=== PATIENT | male | born 1960 | race Caucasian/White ===

== ENCOUNTER 2016-11-14 13:03 | Emergency (ER) | payer MEDICARE ==
[~2016-11-14 13:03] MED LIST: PLAVIX75 MG PO
[2016-11-14 14:57] LABS: HEMOGLOBIN 11.9 gm/dl (14.0-17.5); RED BLOOD COUNT 4.31 M/UL (4.20-5.50); WHITE BLOOD COUNT 10.2 K/UL (4.5-11.0)
== END 2016-11-14 16:20 | disposition home or self-care (01) ==
LOC: ER1 13:03
PROVIDERS: Physician Assistant
DX: T24.211A Burn of second degree of right thigh, initial encounter (principal); L03.115 Cellulitis of right lower limb; I10 Essential (primary) hypertension; R60.0 Localized edema; M25.471 Effusion, right ankle; M79.89 Other specified soft tissue disorders; Z96.642 Presence of left artificial hip joint; Z87.891 Personal history of nicotine dependence; Z79.899 Other long term (current) drug therapy; V29.9XXA Motorcycle rider (driver) (passenger) injured in unspecified traffic accident, initial encounter; Y93.89 Activity, other specified
CPT/HCPCS: 16020; 36415; 85025; 87040; 87070; 87077; 87186; 87205; 93971; 96374; 99284; J0696; J7050

== ENCOUNTER 2020-09-08 16:03 | Inpatient (IN) | payer OTHER, MEDICARE ==
[~2020-09-08] VITALS: Ht 185.4 cm; Wt 137.9 kg
[~2020-09-08 16:03] MED LIST changes: +ABILIFY 5 MG TAB5 MG PO; +ABILIFY15 MG PO; +ABILIFY5 MG PO; +CELEXA40 MG PO; +ELIQUIS 2.5 MG2.5 MG PO; +ELIQUIS 5 MG TAB5 MG PO; +FOLIC ACID 1 MG1 MG PO; +GABAPENTIN400 MG PO; +LEVAQUIN750 MG PO; +LOPRESSOR 25 MG25 MG PO; +LOPRESSOR100 MG PO; +METOPROLOL SUC100 MG PO; +MULTIVITAMINS1 EAC2 PO; +NEURONTIN 400400 MG PO; +NORCO 10-325 T1 EACH PO; +NORCO 5-325 TA1 EACH PO; +ONCE DAILY1 EACH PO; +PANTOPRAZOLE SO40 MG PO; +POTASSIUM CHLO10 ME1 PO; +PROBIOTIC1 EAC2 PO; +PROTONIX40 M1 PO; +THERAGRAN M TAB1 EA PO; +TOPROL XL100 MG PO; +TRAZODONE HCL150 MG PO; +VENLAFAXINE HCL75 MG PO; +VIAGRA100 MG PO; +VITAMIN B-1100 MG PO; +WELLBUTRIN SR150 M1 PO; +ZESTRIL40 MG PO
[2020-09-08 17:33] LABS: HEMOGLOBIN 15.8 gm/dl (14.0-17.5); RED BLOOD COUNT 4.41 M/UL (4.20-5.50); WHITE BLOOD COUNT 12.2 K/UL (4.5-11.0)
[2020-09-08 18:10] LABS: BUN/CREATININE RATIO 5 (0-10)
[2020-09-09 01:52] LABS: HEMOGLOBIN 15.1 gm/dl (14.0-17.5); RED BLOOD COUNT 4.11 M/UL (4.20-5.50); WHITE BLOOD COUNT 12.1 K/UL (4.5-11.0)
[2020-09-09 02:20] LABS: BUN/CREATININE RATIO 6 (0-10)
[2020-09-09] MEDS ORDERED: ARICEPT10 MG PO (11:21)
[2020-09-09] MEDS ORDERED: COZAAR25 MG PO (11:21)
[2020-09-09] MEDS ORDERED: METOPROLOL TART25 MG PO (11:22)
[2020-09-09] MEDS ORDERED: ZOCOR40 MG PO (11:23)
[2020-09-09] MEDS ORDERED: MYRBETRIQ50 MG PO (11:23)
[2020-09-09] MEDS ORDERED: LASIX TAB 20 MG20 MG PO (18:17)
[2020-09-09] MEDS ORDERED: EFFEXOR XR 75 M75 MG PO (18:19)
--- NOTE | 2020-09-10 16:26 | NUR ---
09/10/20 4095 REFUSES TO HAVE FELIZ REMOVED AT THIS TIME STATING THAT HE STILL NEEDS IT TODAY, WILL REEVALUATE TOMORROW
[2020-09-11 04:55] LABS: HEMOGLOBIN 14.5 gm/dl (14.0-17.5); RED BLOOD COUNT 4.06 M/UL (4.20-5.50)
[2020-09-11 04:58] LABS: WHITE BLOOD COUNT 17.6 K/UL (4.5-11.0)
[2020-09-11 05:15] LABS: BUN/CREATININE RATIO 14 (0-10)
[2020-09-12 04:39] LABS: HEMOGLOBIN 14.4 gm/dl (14.0-17.5); RED BLOOD COUNT 4.01 M/UL (4.20-5.50); WHITE BLOOD COUNT 15.7 K/UL (4.5-11.0)
[2020-09-12] MEDS ORDERED: THERAGRAN M TAB1 EA PO (12:11)
[2020-09-12] MEDS ORDERED: HYDROCODONE-AC1 EAC1 PO (12:11)
[2020-09-12] MEDS ORDERED: AUGMENTIN 875-1 EACH PO (12:11)
[2020-12-16] MEDS ORDERED: HYDROCODON-ACE1 EAC4 PO (12:34)
== END 2020-09-12 13:31 | disposition home or self-care (01) | DRG 580 ==
LOC: ER1 16:03 → CDU 21:00 → MED SURG 4 09-09 13:39
PROVIDERS: Internal Medicine; Physician Assistant; Surgery; ADMIT Internal Medicine Infectious Disease
PROC: 0JD80ZZ Extraction of Abdomen Subcutaneous Tissue and Fascia, Open Approach (ICD-10-PCS; principal; 2020-09-09 08:25)
DX: L02.211 Cutaneous abscess of abdominal wall (principal); E87.2 Acidosis; Z68.41 Body mass index [BMI] 40.0-44.9, adult; L03.311 Cellulitis of abdominal wall; F10.10 Alcohol abuse, uncomplicated; I48.0 Paroxysmal atrial fibrillation; E87.6 Hypokalemia; J44.9 Chronic obstructive pulmonary disease, unspecified; I10 Essential (primary) hypertension; E66.9 Obesity, unspecified; F41.9 Anxiety disorder, unspecified; B96.89 Other specified bacterial agents as the cause of diseases classified elsewhere; Z96.643 Presence of artificial hip joint, bilateral; Z20.822 Contact with and (suspected) exposure to COVID-19; K21.9 Gastro-esophageal reflux disease without esophagitis; D72.829 Elevated white blood cell count, unspecified; Z87.11 Personal history of peptic ulcer disease
CPT/HCPCS: 36415; 80048; 80053; 80202; 83605; 83735; 85025; 87040; 87070; 87077; 87205; 96374; 96375; 99284; G0378; J0295; J1100; J2001; J2060; J2250; J2270; J2405; J2543; J2704; J3010; J3370; J3411; J3475; J3480; J7030; J7070; J7120; Q9967; U0002

== ENCOUNTER 2020-10-09 10:37 | Emergency (ER) | payer OTHER ==
[~2020-10-09 10:37] MED LIST changes: +ARICEPT10 MG PO; +AUGMENTIN 875-1 EACH PO; +COZAAR25 MG PO; +EFFEXOR XR 75 M75 MG PO; +HYDROCODONE-AC1 EAC1 PO; +LASIX TAB 20 MG20 MG PO; +METOPROLOL TART25 MG PO; +MYRBETRIQ50 MG PO; +ZOCOR40 MG PO
[2020-10-09] MEDS ORDERED: IBUPROFEN800 MG PO (20:34)
[2020-10-09] MEDS ORDERED: HYDROCODON-ACE1 EAC4 PO (20:36)
[2020-12-16] MEDS ORDERED: HYDROCODON-ACE1 EAC4 PO (12:34)
== END 2020-10-09 22:00 | disposition home or self-care (01) ==
LOC: ER1 10:37
PROVIDERS: Physician Assistant
DX: S82.832A Other fracture of upper and lower end of left fibula, initial encounter for closed fracture (principal); S82.432A Displaced oblique fracture of shaft of left fibula, initial encounter for closed fracture; S20.224A Contusion of middle back wall of thorax, initial encounter; S00.83XA Contusion of other part of head, initial encounter; S50.02XA Contusion of left elbow, initial encounter; S50.01XA Contusion of right elbow, initial encounter; I48.91 Unspecified atrial fibrillation; I10 Essential (primary) hypertension; J44.9 Chronic obstructive pulmonary disease, unspecified; Z79.01 Long term (current) use of anticoagulants; Z79.899 Other long term (current) drug therapy; F17.210 Nicotine dependence, cigarettes, uncomplicated; V49.40XA Driver injured in collision with unspecified motor vehicles in traffic accident, initial encounter; Y92.410 Unspecified street and highway as the place of occurrence of the external cause; Z20.822 Contact with and (suspected) exposure to COVID-19
CPT/HCPCS: 70450; 72072; 73030; 73080; 73564; 73610; 80307; 99284; G0480; U0002

== ENCOUNTER 2020-12-05 19:30 | Emergency (ER) | payer OTHER ==
[~2020-12-05 19:30] MED LIST changes: +HYDROCODON-ACE1 EAC4 PO; +IBUPROFEN800 MG PO
[2020-12-05] MEDS ORDERED: HYDROCODON-ACE1 EAC4 PO (21:38)
[2020-12-16] MEDS ORDERED: HYDROCODON-ACE1 EAC4 PO (12:34)
== END 2020-12-05 22:09 | disposition home or self-care (01) ==
LOC: ER1 19:30
DX: S06.9X9A Unspecified intracranial injury with loss of consciousness of unspecified duration, initial encounter (principal); S52.501A Unspecified fracture of the lower end of right radius, initial encounter for closed fracture; S52.601A Unspecified fracture of lower end of right ulna, initial encounter for closed fracture; J44.9 Chronic obstructive pulmonary disease, unspecified; I25.10 Atherosclerotic heart disease of native coronary artery without angina pectoris; I10 Essential (primary) hypertension; W10.9XXA Fall (on) (from) unspecified stairs and steps, initial encounter; Y92.009 Unspecified place in unspecified non-institutional (private) residence as the place of occurrence of the external cause
CPT/HCPCS: 25605; 70450; 72125; 73100; 73110; 99284

== ENCOUNTER → 2020-12-16 | Day surgery (SDC) | payer OTHER ==
[~2020-12-16] VITALS: Ht 185.4 cm; Wt 138.3 kg
[2020-12-16 06:40] LABS: HEMOGLOBIN 14.3 gm/dl (14.0-17.5); RED BLOOD COUNT 3.95 M/UL (4.20-5.50); WHITE BLOOD COUNT 9.4 K/UL (4.5-11.0)
[2020-12-16 07:02] LABS: BUN/CREATININE RATIO 11 (0-10)
== END | disposition home or self-care (01) ==
LOC: OR 06:14
PROVIDERS: Orthopaedic Surgery
DX: S52.571A Other intraarticular fracture of lower end of right radius, initial encounter for closed fracture (principal); G56.01 Carpal tunnel syndrome, right upper limb; I10 Essential (primary) hypertension; J44.9 Chronic obstructive pulmonary disease, unspecified; F41.9 Anxiety disorder, unspecified; F32.9 Major depressive disorder, single episode, unspecified; E66.01 Morbid (severe) obesity due to excess calories; F17.210 Nicotine dependence, cigarettes, uncomplicated; Z79.01 Long term (current) use of anticoagulants; Z79.899 Other long term (current) drug therapy; W10.9XXA Fall (on) (from) unspecified stairs and steps, initial encounter
CPT/HCPCS: 36415; 73110; 76000; 80048; 85025; C1713; J0690; J1100; J2001; J2250; J2405; J2704; J2795; J3010; J7030; J7120

== ENCOUNTER → 2021-01-20 | Outpatient (CLI) | payer OTHER | LOC: WCC 14:15 | DX: T81.49XA Infection following a procedure, other surgical site, initial encounter (principal); I87.2 Venous insufficiency (chronic) (peripheral); L97.812 Non-pressure chronic ulcer of other part of right lower leg with fat layer exposed; S80.811A Abrasion, right lower leg, initial encounter; J44.9 Chronic obstructive pulmonary disease, unspecified; G47.30 Sleep apnea, unspecified; I10 Essential (primary) hypertension; K74.60 Unspecified cirrhosis of liver; F17.210 Nicotine dependence, cigarettes, uncomplicated; F10.920 Alcohol use, unspecified with intoxication, uncomplicated; E66.01 Morbid (severe) obesity due to excess calories; R60.0 Localized edema; Z68.41 Body mass index [BMI] 40.0-44.9, adult; Z79.891 Long term (current) use of opiate analgesic; Z79.899 Other long term (current) drug therapy; W19.XXXA Unspecified fall, initial encounter ==

== ENCOUNTER → 2021-01-27 | Outpatient (CLI) | payer OTHER | LOC: WCC 14:30 | DX: T81.49XA Infection following a procedure, other surgical site, initial encounter (principal); L97.812 Non-pressure chronic ulcer of other part of right lower leg with fat layer exposed; S80.811A Abrasion, right lower leg, initial encounter; J44.9 Chronic obstructive pulmonary disease, unspecified; G47.30 Sleep apnea, unspecified; I10 Essential (primary) hypertension; K74.60 Unspecified cirrhosis of liver; F17.210 Nicotine dependence, cigarettes, uncomplicated; F10.920 Alcohol use, unspecified with intoxication, uncomplicated; E66.01 Morbid (severe) obesity due to excess calories; R60.0 Localized edema; Z68.41 Body mass index [BMI] 40.0-44.9, adult; Z79.891 Long term (current) use of opiate analgesic; Z79.899 Other long term (current) drug therapy; W19.XXXA Unspecified fall, initial encounter | CPT/HCPCS: 97597 ==

== ENCOUNTER → 2021-02-04 | Outpatient (CLI) | payer OTHER | LOC: WCC 14:30 | DX: T81.49XD Infection following a procedure, other surgical site, subsequent encounter (principal); S40.811D Abrasion of right upper arm, subsequent encounter; J44.9 Chronic obstructive pulmonary disease, unspecified; G47.30 Sleep apnea, unspecified; I10 Essential (primary) hypertension; K74.60 Unspecified cirrhosis of liver; F10.920 Alcohol use, unspecified with intoxication, uncomplicated; E66.01 Morbid (severe) obesity due to excess calories; R60.0 Localized edema; Z72.0 Tobacco use ==

== ENCOUNTER → 2021-02-11 | Outpatient (CLI) | payer OTHER | LOC: WCC 09:38 | DX: I87.2 Venous insufficiency (chronic) (peripheral) (principal); L97.812 Non-pressure chronic ulcer of other part of right lower leg with fat layer exposed; T81.49XA Infection following a procedure, other surgical site, initial encounter; S80.811A Abrasion, right lower leg, initial encounter; J44.9 Chronic obstructive pulmonary disease, unspecified; G47.30 Sleep apnea, unspecified; I10 Essential (primary) hypertension; K74.60 Unspecified cirrhosis of liver; F17.210 Nicotine dependence, cigarettes, uncomplicated; F10.920 Alcohol use, unspecified with intoxication, uncomplicated; E66.01 Morbid (severe) obesity due to excess calories; R60.0 Localized edema; Z68.41 Body mass index [BMI] 40.0-44.9, adult; Z79.899 Other long term (current) drug therapy; W19.XXXA Unspecified fall, initial encounter | CPT/HCPCS: 97597 ==

== ENCOUNTER → 2021-02-16 | Outpatient (CLI) | payer OTHER | LOC: HEART 5 11:00 | DX: R60.0 Localized edema (principal); T81.49XA Infection following a procedure, other surgical site, initial encounter; S80.811A Abrasion, right lower leg, initial encounter; J44.9 Chronic obstructive pulmonary disease, unspecified; G47.30 Sleep apnea, unspecified; I10 Essential (primary) hypertension; K74.60 Unspecified cirrhosis of liver; F10.920 Alcohol use, unspecified with intoxication, uncomplicated; E66.01 Morbid (severe) obesity due to excess calories; Z72.0 Tobacco use | CPT/HCPCS: 93925; 93970 ==

== ENCOUNTER → 2021-02-18 | Outpatient (CLI) | payer OTHER | LOC: WCC 13:40 | DX: T81.49XA Infection following a procedure, other surgical site, initial encounter (principal); L97.812 Non-pressure chronic ulcer of other part of right lower leg with fat layer exposed; S80.811A Abrasion, right lower leg, initial encounter; J44.9 Chronic obstructive pulmonary disease, unspecified; G47.30 Sleep apnea, unspecified; I10 Essential (primary) hypertension; K74.60 Unspecified cirrhosis of liver; F17.210 Nicotine dependence, cigarettes, uncomplicated; F10.920 Alcohol use, unspecified with intoxication, uncomplicated; E66.01 Morbid (severe) obesity due to excess calories; R60.0 Localized edema; Z68.41 Body mass index [BMI] 40.0-44.9, adult; Z79.2 Long term (current) use of antibiotics; Z79.899 Other long term (current) drug therapy; X58.XXXA Exposure to other specified factors, initial encounter ==

== ENCOUNTER → 2021-03-18 | Outpatient (CLI) | payer OTHER | END | disposition home or self-care (01) | LOC: WCC 13:13 | PROC: 0JBQ0ZZ Excision of Right Foot Subcutaneous Tissue and Fascia, Open Approach (ICD-10-PCS; principal; 2021-03-18) | DX: L97.312 Non-pressure chronic ulcer of right ankle with fat layer exposed (principal); T81.41XD Infection following a procedure, superficial incisional surgical site, subsequent encounter; S90.511D Abrasion, right ankle, subsequent encounter; F17.210 Nicotine dependence, cigarettes, uncomplicated; I10 Essential (primary) hypertension; J44.9 Chronic obstructive pulmonary disease, unspecified; G47.30 Sleep apnea, unspecified; K74.60 Unspecified cirrhosis of liver; I89.0 Lymphedema, not elsewhere classified; I49.9 Cardiac arrhythmia, unspecified; G62.9 Polyneuropathy, unspecified; E66.01 Morbid (severe) obesity due to excess calories; Z68.41 Body mass index [BMI] 40.0-44.9, adult; Z79.2 Long term (current) use of antibiotics; Z79.899 Other long term (current) drug therapy; X58.XXXD Exposure to other specified factors, subsequent encounter; Y83.8 Other surgical procedures as the cause of abnormal reaction of the patient, or of later complication, without mention of misadventure at the time of the procedure | CPT/HCPCS: 87070; 87077; 87186; 87205 ==

== ENCOUNTER → 2021-03-25 | Outpatient (CLI) | payer OTHER | END | disposition home or self-care (01) | LOC: WCC 13:18 | PROC: 0JBN0ZZ Excision of Right Lower Leg Subcutaneous Tissue and Fascia, Open Approach (ICD-10-PCS; principal; 2021-03-25) | DX: L97.312 Non-pressure chronic ulcer of right ankle with fat layer exposed (principal); T81.49XA Infection following a procedure, other surgical site, initial encounter; I89.0 Lymphedema, not elsewhere classified; I10 Essential (primary) hypertension; J44.9 Chronic obstructive pulmonary disease, unspecified; G47.30 Sleep apnea, unspecified; K74.60 Unspecified cirrhosis of liver; F10.920 Alcohol use, unspecified with intoxication, uncomplicated; G62.9 Polyneuropathy, unspecified; E66.01 Morbid (severe) obesity due to excess calories; Z68.41 Body mass index [BMI] 40.0-44.9, adult; Z79.891 Long term (current) use of opiate analgesic; Z79.899 Other long term (current) drug therapy; X58.XXXD Exposure to other specified factors, subsequent encounter; I49.9 Cardiac arrhythmia, unspecified ==

== ENCOUNTER → 2021-03-26 | Outpatient (CLI) | payer OTHER | LOC: OPSV 14:15 | DX: T81.49XD Infection following a procedure, other surgical site, subsequent encounter (principal); S80.811D Abrasion, right lower leg, subsequent encounter; J44.9 Chronic obstructive pulmonary disease, unspecified; G47.30 Sleep apnea, unspecified; I10 Essential (primary) hypertension; K74.60 Unspecified cirrhosis of liver; F10.920 Alcohol use, unspecified with intoxication, uncomplicated; E66.01 Morbid (severe) obesity due to excess calories; R60.0 Localized edema; L97.312 Non-pressure chronic ulcer of right ankle with fat layer exposed; Z73.0 Burn-out | CPT/HCPCS: G0463 ==

== ENCOUNTER → 2021-03-27 | Outpatient (CLI) | payer OTHER | LOC: OPSV 14:30 | DX: T81.49XD Infection following a procedure, other surgical site, subsequent encounter (principal); S80.811D Abrasion, right lower leg, subsequent encounter; L97.312 Non-pressure chronic ulcer of right ankle with fat layer exposed; I10 Essential (primary) hypertension; J44.9 Chronic obstructive pulmonary disease, unspecified; G47.30 Sleep apnea, unspecified; K74.60 Unspecified cirrhosis of liver; E66.01 Morbid (severe) obesity due to excess calories; R60.0 Localized edema; F10.920 Alcohol use, unspecified with intoxication, uncomplicated; Z72.0 Tobacco use | CPT/HCPCS: G0463 ==

== ENCOUNTER → 2021-03-28 | Outpatient (CLI) | payer OTHER | LOC: OPSV 07:28 | DX: L97.312 Non-pressure chronic ulcer of right ankle with fat layer exposed (principal); R60.0 Localized edema; S80.811D Abrasion, right lower leg, subsequent encounter | CPT/HCPCS: G0463 ==

== ENCOUNTER → 2021-03-29 | Outpatient (CLI) | payer OTHER | LOC: OPSV 06:55 | DX: L97.312 Non-pressure chronic ulcer of right ankle with fat layer exposed (principal); S80.811D Abrasion, right lower leg, subsequent encounter; R60.0 Localized edema | CPT/HCPCS: G0463 ==

== ENCOUNTER → 2021-03-30 | Outpatient (CLI) | payer OTHER | LOC: OPSV 14:00 | DX: T81.49XD Infection following a procedure, other surgical site, subsequent encounter (principal); S80.811D Abrasion, right lower leg, subsequent encounter; L97.312 Non-pressure chronic ulcer of right ankle with fat layer exposed; J44.9 Chronic obstructive pulmonary disease, unspecified; G47.30 Sleep apnea, unspecified; I10 Essential (primary) hypertension; K74.60 Unspecified cirrhosis of liver; Z72.0 Tobacco use; F10.920 Alcohol use, unspecified with intoxication, uncomplicated; E66.01 Morbid (severe) obesity due to excess calories; R60.0 Localized edema | CPT/HCPCS: G0463 ==

== ENCOUNTER → 2021-04-01 | Outpatient (CLI) | payer OTHER | LOC: WCC 11:47 | DX: I87.2 Venous insufficiency (chronic) (peripheral) (principal); L97.322 Non-pressure chronic ulcer of left ankle with fat layer exposed; I10 Essential (primary) hypertension; J44.9 Chronic obstructive pulmonary disease, unspecified; G47.30 Sleep apnea, unspecified; K74.60 Unspecified cirrhosis of liver; F17.210 Nicotine dependence, cigarettes, uncomplicated; E66.01 Morbid (severe) obesity due to excess calories; Z68.41 Body mass index [BMI] 40.0-44.9, adult; I89.0 Lymphedema, not elsewhere classified ==

== ENCOUNTER → 2021-04-02 | Outpatient (CLI) | payer OTHER | LOC: OPSV 14:00 | DX: L97.312 Non-pressure chronic ulcer of right ankle with fat layer exposed (principal); R60.0 Localized edema; S80.811D Abrasion, right lower leg, subsequent encounter | CPT/HCPCS: G0463 ==

== ENCOUNTER → 2021-04-03 | Outpatient (CLI) | payer OTHER | LOC: OPSV 13:00 | DX: R60.0 Localized edema (principal); L97.312 Non-pressure chronic ulcer of right ankle with fat layer exposed | CPT/HCPCS: G0463 ==

== ENCOUNTER → 2021-04-04 | Outpatient (CLI) | payer OTHER | LOC: OPSV 07:00 | DX: R60.0 Localized edema (principal); S80.811D Abrasion, right lower leg, subsequent encounter; L97.312 Non-pressure chronic ulcer of right ankle with fat layer exposed | CPT/HCPCS: G0463 ==

== ENCOUNTER → 2021-04-05 | Outpatient (CLI) | payer OTHER | LOC: OPSV 07:00 | DX: S80.811D Abrasion, right lower leg, subsequent encounter (principal); L97.312 Non-pressure chronic ulcer of right ankle with fat layer exposed; R60.0 Localized edema | CPT/HCPCS: G0463 ==

== ENCOUNTER → 2021-04-06 | Outpatient (CLI) | payer OTHER | LOC: OPSV 14:00 | DX: R60.0 Localized edema (principal); L97.312 Non-pressure chronic ulcer of right ankle with fat layer exposed; S80.811D Abrasion, right lower leg, subsequent encounter | CPT/HCPCS: G0463 ==

== ENCOUNTER → 2021-04-07 | Outpatient (CLI) | payer OTHER | LOC: OPSV 14:00 | DX: T81.49XD Infection following a procedure, other surgical site, subsequent encounter (principal); S80.811D Abrasion, right lower leg, subsequent encounter; L97.312 Non-pressure chronic ulcer of right ankle with fat layer exposed; R60.0 Localized edema; I10 Essential (primary) hypertension; J44.9 Chronic obstructive pulmonary disease, unspecified; G47.30 Sleep apnea, unspecified; K74.60 Unspecified cirrhosis of liver; F10.920 Alcohol use, unspecified with intoxication, uncomplicated; E66.01 Morbid (severe) obesity due to excess calories; Z72.0 Tobacco use | CPT/HCPCS: G0463 ==

== ENCOUNTER → 2021-04-08 | Outpatient (CLI) | payer OTHER | LOC: WCC 11:07 | DX: L97.312 Non-pressure chronic ulcer of right ankle with fat layer exposed (principal); S80.811D Abrasion, right lower leg, subsequent encounter; I89.0 Lymphedema, not elsewhere classified; I10 Essential (primary) hypertension; J44.9 Chronic obstructive pulmonary disease, unspecified; G47.30 Sleep apnea, unspecified; K74.60 Unspecified cirrhosis of liver; E66.01 Morbid (severe) obesity due to excess calories; Z72.0 Tobacco use | CPT/HCPCS: G0463 ==

== ENCOUNTER 2021-08-26 10:28 | Emergency (ER) | payer MEDICARE ==
[2021-08-26 12:08] LABS: HEMOGLOBIN 11.9 gm/dl (14.0-17.5); RED BLOOD COUNT 3.17 M/UL (4.20-5.50)
[2021-08-26 12:34] LABS: BUN/CREATININE RATIO 47 (0-10)
== END 2021-08-26 22:20 | disposition short-term general hospital (02) ==
LOC: ER1 10:28
PROVIDERS: Student in an Organized Health Care Education/Training Program
DX: A41.9 Sepsis, unspecified organism (principal); K74.60 Unspecified cirrhosis of liver; Z20.822 Contact with and (suspected) exposure to COVID-19; K92.2 Gastrointestinal hemorrhage, unspecified; R18.8 Other ascites; I48.91 Unspecified atrial fibrillation; J44.9 Chronic obstructive pulmonary disease, unspecified; I10 Essential (primary) hypertension; Z79.01 Long term (current) use of anticoagulants; F17.200 Nicotine dependence, unspecified, uncomplicated
CPT/HCPCS: 71045; 80053; 82272; 82550; 82553; 83605; 84484; 85025; 85610; 85730; 86850; 86900; 86901; 87040; 93005; 96374; 96375; 99285; J3370; J7030; J7050; Q9967; U0002